=== PATIENT | male | born 1950 | race Caucasian/White ===

== ENCOUNTER 2019-05-02 21:23 | Inpatient (IN) | payer MEDICARE ==
[2019-05-02 22:34] VITALS: BMI 26.6
[2019-05-03] MEDS ORDERED: Bisacodyl 10 MG SUPP PR PRN (00:06)
[2019-05-03] MEDS ORDERED: Cyclobenzaprine 10 MG TAB PO PRN (00:08)
[2019-05-03] MEDS ORDERED: Dexamethasone 4 MG TAB PO SCH (00:15)
[2019-05-03] MEDS: Clindamycin 150 MG CAP PO SCH ×4 (00:37→19:03)
[2019-05-03] MEDS ORDERED: Clindamycin 150 MG CAP PO SCH (00:45)
[2019-05-03 05:52] LABS: #Basophils 0.2 thou/uL (0.0-0.2); #Lymphocytes 0.7 thou/uL (1.20-3.40); #Monocytes 1.9 thou/uL (0.11-0.59); #Neutrophils 13.5 thou/uL (1.40-6.50); %Basophils 1.4 % (0.0-1.0); %Eosinophils 0.1 % (0.0-10.0); %Lymphocytes 4.2 % (21.0-51.0); %Monocytes 11.8 % (0.0-10.0); %Neutrophils 82.5 % (42.0-75.0); Anisocytosis SLIGHT = 6-15 cells (100X) (0-5/hpf); Hemoglobin 8.6 g/dL (14.0-18.0); Hypochromia SLIGHT = 6-15 cells (100X) (0-5/hpf); MDiff Complete? YES; Mean Corpuscular HGB CONC 30.1 g/dL (32.0-36.0); Mean Corpuscular Hemoglobin 25.6 pg (27.0-31.0); Mean Platelet Volume 6.7 fL (7.4-10.4); Ovalocytes SLIGHT = 2-5 cells (100X) (0-1/hpf); Platelet Count 378 thou/uL (130-400); Platelet Morphology Comment Appears Adequate; Polychromasia SLIGHT = 2-3 cells (100X) (0-2/hpf); RBC Distribution Width 20.4 % (11.5-14.5); Red Blood Cell (RBC) Count 3.35 mill/uL (4.70-6.10); White Blood Cell (WBC) Count 16.3 thou/uL (4.8-10.8)
[2019-05-03 05:59] LABS: ALT (SGPT) 21 U/L (8-55); AST (SGOT) 51 U/L (5-34); Albumin 1.9 g/dL (3.4-4.8); Alkaline Phosphatase 315 U/L (40-110); Anion Gap 14 mmol/L (10-20); BUN (Urea Nitrogen) 13 mg/dL (8.4-25.7); Bilirubin, Total 0.6 mg/dL (0.2-1.2); Calc. Creatinine Clearance 168 mL/min (70-130); Calcium 8.3 mg/dL (7.8-10.44); Carbon Dioxide 34 mmol/L (23-31); Chloride 94 mmol/L (98-107); Estimated GFR-MDRD Greater than 90; Globulin 3.2 g/dL (2.4-3.5); Glucose 110 mg/dL (80-115); Protein, Total 5.1 g/dL (5.8-8.1); Sodium 138 mmol/L (136-145)
[2019-05-03] MEDS ORDERED: Sodium Chloride 1 GM TAB PO SCH (09:00)
[2019-05-03] MEDS: Morphine ER 15 MG TAB PO SCH ×2 (09:14→20:30)
[2019-05-03] MEDS: Metoprolol Tartrate 25 MG TAB PO SCH ×2 (09:15→20:31)
[2019-05-03] MEDS: Digoxin 0.125 MG TAB PO SCH (09:15)
[2019-05-03] MEDS: Multivitamin W/ Minerals 1 TAB PO SCH (09:15)
[2019-05-03] MEDS: Carvedilol 3.125 MG TAB PO SCH ×2 (09:15→20:31)
[2019-05-03] MEDS: Tamsulosin HCl 0.4 MG CAP PO SCH (09:15)
[2019-05-03] MEDS: Dutasteride 0.5 MG CAP PO SCH (09:16)
[2019-05-03] MEDS: Fish Oil 1,000 MG CAP PO SCH (09:16)
[2019-05-03] MEDS: Sodium Chloride 1 GM TAB PO SCH ×2 (09:16→20:30)
[2019-05-03] MEDS: Polyethylene Glycol 3350 17 GM Packet PO PRN (11:58)
[2019-05-03] MEDS: Atorvastatin Calcium 10 MG TAB PO SCH (20:31)
[2019-05-04] MEDS: Clindamycin 150 MG CAP PO SCH ×5 (01:00→23:08)
[2019-05-04 05:51] LABS: Anion Gap 14 mmol/L (10-20); BUN (Urea Nitrogen) 12 mg/dL (8.4-25.7); Calc. Creatinine Clearance 175 mL/min (70-130); Carbon Dioxide 33 mmol/L (23-31); Chloride 93 mmol/L (98-107); Estimated GFR-MDRD Greater than 90; Glucose 99 mg/dL (80-115); Potassium 3.7 mmol/L (3.5-5.1); Sodium 136 mmol/L (136-145)
[2019-05-04 06:01] LABS: #Basophils 0.2 thou/uL (0.0-0.2); #Lymphocytes 0.8 thou/uL (1.20-3.40); #Monocytes 2.3 thou/uL (0.11-0.59); #Neutrophils 14.6 thou/uL (1.40-6.50); %Basophils 1.1 % (0.0-1.0); %Eosinophils 0.1 % (0.0-10.0); %Lymphocytes 4.4 % (21.0-51.0); %Monocytes 12.9 % (0.0-10.0); %Neutrophils 81.4 % (42.0-75.0); Anisocytosis SLIGHT = 6-15 cells (100X) (0-5/hpf); Hemoglobin 8.3 g/dL (14.0-18.0); Hypochromia MODERATE=16-30 cells (100X) (0-5/hpf); MDiff Complete? YES; Mean Corpuscular HGB CONC 30.4 g/dL (32.0-36.0); Mean Corpuscular Hemoglobin 25.7 pg (27.0-31.0); Mean Corpuscular Volume 84.6 fL (78.0-98.0); Microcytosis SLIGHT = 6-15 cells (100X) (0-5/hpf); Ovalocytes SLIGHT = 2-5 cells (100X) (0-1/hpf); Platelet Count 370 thou/uL (130-400); Platelet Morphology Comment Appears Adequate; Poikilocytosis SLIGHT = 6-15 cells (100X) (0-5/hpf); Red Blood Cell (RBC) Count 3.22 mill/uL (4.70-6.10); White Blood Cell (WBC) Count 17.9 thou/uL (4.8-10.8)
[2019-05-04] MEDS: Morphine ER 15 MG TAB PO SCH ×2 (08:53→20:10)
[2019-05-04] MEDS: Digoxin 0.125 MG TAB PO SCH (08:55)
[2019-05-04] MEDS: Metoprolol Tartrate 25 MG TAB PO SCH ×2 (08:55→20:10)
[2019-05-04] MEDS: Carvedilol 3.125 MG TAB PO SCH ×2 (08:55→20:10)
[2019-05-04] MEDS: Fish Oil 1,000 MG CAP PO SCH (08:56)
[2019-05-04] MEDS: Dutasteride 0.5 MG CAP PO SCH (08:56)
[2019-05-04] MEDS: Tamsulosin HCl 0.4 MG CAP PO SCH (08:56)
[2019-05-04] MEDS: Sodium Chloride 1 GM TAB PO SCH ×2 (08:57→20:11)
[2019-05-04] MEDS: Multivitamin W/ Minerals 1 TAB PO SCH (08:57)
[2019-05-04] MEDS: Polyethylene Glycol 3350 17 GM Packet PO PRN (08:57)
[2019-05-04] MEDS: Simethicone Chewable 80 MG TAB PO PRN (09:53)
[2019-05-04] MEDS: HYDROcodone/Acetaminophen 10/325 mg Tablet PO PRN (17:40)
[2019-05-04] MEDS: Atorvastatin Calcium 10 MG TAB PO SCH (20:11)
[2019-05-05] MEDS: Simethicone Chewable 80 MG TAB PO PRN (00:03)
[2019-05-05] MEDS: Morphine ER 15 MG TAB PO SCH ×3 (05:00→20:16)
[2019-05-05] MEDS: Clindamycin 150 MG CAP PO SCH ×3 (05:01→17:34)
--- NOTE | 2019-05-05 07:03 | PRG ---
DATE OF SERVICE: 05/04/[address] Flaquita Bolden. SUBJECTIVE: The patient is an unfortunate 68-year-old white male with metastatic cancer of the lung to the liver, bones, and gluteal muscles, who is having significant pain, requiring MS Contin every 8 hours rather than the every 12 hours that was mistakenly ordered. He has been seen by Oncology at [facility] and offered hospice, but patient has elected to attempt therapy to see, if he will get stronger before this. However, he has been unable to do therapy because of his pain and is wishing now to have consult with [facility]. He has had other problems of atrial fibrillation with rapid ventricular response, which has not recurred, but is having significant abdominal pain from probable hepatic metastasis and has been too weak to get out of bed to even consider going home with outpatient hospice OBJECTIVE: GENERAL: At this time shows the patient to be alert, oriented, and lucid, but in some distress from abdominal pain. VITAL SIGNS: Show him to have temperature 97.4, pulse 89, respirations 20, O2 sats 94% on 2 L, blood pressure 104/63. LUNGS: Show decreased breath sounds, both bases. No wheezes or rhonchi. CARDIAC EXAMINATION: Shows irregular rhythm. ABDOMEN: Soft, but with tenderness to palpation in the right upper quadrant. SKIN/EXTREMITIES: Showed no edema LABORATORY DATA: Shows white count 17,900, hematocrit 27, hemoglobin 8.3. Sodium 136, potassium 3.7, chloride 93, bicarb 33, BUN 12, creatinine 0.48, glucose 99. ASSESSMENT: Metastatic lung cancer with significant pain, requiring MS Contin 15 mg every 8 hours instead of every 12, and with increasing weakness with inability to maintain ADLs. The patient is lucid and coherent, and is in room and they both are electing now to consult [facility]. PLAN: 1. Discussed consult with Pricila at [facility] and will come see the patient tomorrow. 2. Increase MS Contin to 15 q.8. 3. Discussed with the patient and family and they understand, as they have had conversations with Oncology previously about hospice, and the patient is ready and does not want any further physical therapy. Job ID: [id number]
[2019-05-05] MEDS: Multivitamin W/ Minerals 1 TAB PO SCH (09:57)
[2019-05-05] MEDS: Dutasteride 0.5 MG CAP PO SCH (09:57)
[2019-05-05] MEDS: Sodium Chloride 1 GM TAB PO SCH ×2 (09:57→20:20)
[2019-05-05] MEDS: Tamsulosin HCl 0.4 MG CAP PO SCH (09:57)
[2019-05-05] MEDS: Fish Oil 1,000 MG CAP PO SCH (09:58)
[2019-05-05] MEDS: Digoxin 0.125 MG TAB PO SCH (09:58)
[2019-05-05] MEDS: Carvedilol 3.125 MG TAB PO SCH ×2 (09:59→20:19)
[2019-05-05] MEDS: Metoprolol Tartrate 25 MG TAB PO SCH ×2 (09:59→20:20)
[2019-05-05] MEDS: Polyethylene Glycol 3350 17 GM Packet PO PRN (10:17)
[2019-05-05] MEDS: HYDROcodone/Acetaminophen 10/325 mg Tablet PO PRN ×3 (10:18→22:00)
[2019-05-05] MEDS: Atorvastatin Calcium 10 MG TAB PO SCH (20:19)
--- NOTE | 2019-05-05 21:20 | PRG ---
DATE OF SERVICE: 05/05/2019 SUBJECTIVE: The patient has been seen by [facility] and is not being deemed to be a candidate for inpatient hospice. The patient states that he cannot hardly do any further therapy because of weakness and shortness of breath. He has also developed a urinary retention, requiring intermittent caths twice today. He has stated he does not wish to at home, but states she cannot put him in the skilled nursing. He is having significant shortness of breath on minimal exertion and has significant pain on moving his legs at all. OBJECTIVE: VITAL SIGNS: Shows his blood pressure is 119/68, temperature 97.9, pulse 97, respirations 18, O2 saturations 95% on room air. LUNGS: Showed a few diffuse rhonchi. CARDIAC: Showed regular rhythm. ABDOMEN: Soft, but tender. SKIN/EXTREMITIES: Showed 1+ edema. No clubbing or cyanosis. NEUROLOGICAL: Diffuse with generalized weakness. ASSESSMENT: 1. Metastatic lung cancer with significant pain, controlled on MS Contin 15 mg every 8 hours. 2. Increased weakness and inability to maintain ADLs, but wishes to continue PT and OT in order to continue to qualify for skilled, he is not a candidate for inpatient hospice and does not want to go to outpatient hospice if at all possible. PLAN: 1. Discontinue all medications that are not specifically for symptoms. 2. Continue to attempt PT and OT. 3. Do intermittent caths every 6 hours if unable to void and may need Salazar catheter. 4. Discuss discontinuation of all laboratories. 5. Dr. Huber to be back tonight. Job ID: [id number]
[2019-05-06] MEDS: Clindamycin 150 MG CAP PO SCH ×5 (00:08→23:49)
[2019-05-06] MEDS: Morphine ER 15 MG TAB PO SCH ×3 (03:55→19:53)
--- NOTE | 2019-05-06 07:46 | HP ---
Date of service: 05/03/2019 CHIEF COMPLAINT: Recent admission to the hospital with metastatic lung cancer and shortness of breath with possible pneumonitis, here for therapy. BRIEF HISTORY: This is a very pleasant 68-year-old male, who has a history of metastatic cancer of the lung. He was admitted to the hospital with possible syncopal episode. He was diagnosed with acute hypoxemic respiratory failure, possibly due to right-sided pneumonia and pleural effusion and was started on IV antibiotics. He responded gradually. CT was negative for PE. Echocardiogram showed he had a small pericardial effusion. He was significantly deconditioned and was recommended hospice due to him not being a candidate for any further chemotherapy due to his current clinical state and he wanted to try therapy before he made any decision, so he was transferred here. The patient is resting comfortable in bed. He denies any chest pain or shortness of breath. The pain is controlled on current regimen. PAST MEDICAL HISTORY: 1. Atrial fibrillation. 2. Stage IV lung cancer with metastasis to the bones, liver, gluteal muscles. 3. Portal vein thrombosis. 4. Acute hypoxemic respiratory failure. 5. Possible resolving pneumonitis. 6. Hyponatremia, likely due to syndrome of inappropriate antidiuretic hormone secretion. 7. Anemia of chronic disease. 8. Significant deconditioning. PAST SURGICAL HISTORY: 1. MediPort placement. 2. Tonsillectomy. 3. Shoulder surgery. PSYCHOSOCIAL HISTORY: Lives with his spouse. Denies any tobacco abuse. Social alcohol intake. No recreational drug abuse. ALLERGIES: DOCUMENTED PENICILLIN, BUT APPARENTLY IT WAS HIS FATHER'S AND HE DOES NOT REMEMBER HAVING ANY ISSUES. MEDICATIONS: He has been transferred here on the following medications; 1. [place] 10/325 one tablet q.4 p.r.n. pain. 2. Lipitor 10 mg at bedtime. 3. Carvedilol 3.125 mg b.i.d. 4. Vitamin D3 of 2000 units daily. 5. Clindamycin 300 mg q.6 hours. 6. Flexeril 10 mg t.i.d. p.r.n. 7. Decadron 4 mg before chemo. 8. Lanoxin 0.25 mg daily. 9. Avodart 0.5 mg daily. 10. Lopressor 12.5 mg b.i.d. 11. MS Contin 45 mg q.8. 12. Protonix 40 mg daily. 13. MiraLAX 17 g in 8 ounces of water daily. 14. Salt tablet 1 g b.i.d. 15. Tamsulosin 0.4 mg daily. REVIEW OF SYSTEMS: CARDIOVASCULAR: Denies any chest pain, still has significant shortness of breath. Denies any expectoration, hemoptysis. Denies any PND or orthopnea. Denies any palpitations. RESPIRATORY: Occasional cough. Denies any hemoptysis. GASTROINTESTINAL: Bloating present. Denies any hematemesis, melena, or hematochezia. GENITOURINARY: Denies any frequency, urgency, dysuria, or hematuria. CENTRAL NERVOUS SYSTEM: Generalized weakness. No fainting spells. No seizure activity. HEENT: Denies any difficulty or changes with his vision, speech, hearing, or swallowing. SKIN: Denies any rash. PHYSICAL EXAMINATION: GENERAL: Pleasant 68-year-old male, resting comfortably in bed and denies any concerns. His spouse is in the room. VITAL SIGNS: He is afebrile. Heart rate is 102, respirations 18, oxygen saturation 96% on 2 L, and blood pressure 107/65. HEENT: Normocephalic and atraumatic. Pupils equally reactive to light and accommodation. No JVD, thyromegaly, cervical lymphadenopathy, throat exudates, or carotid bruits. CARDIOVASCULAR: S1, S2 plus. Rate and rhythm regular. RESPIRATORY: Normal vesicular breath sounds with decreased air entry in the right base. Occasional rhonchi. ABDOMEN: Firm. Minimal tenderness, generalized. Bowel sounds heard in all quadrants. No rebound or rigidity. EXTREMITIES: Without cyanosis or clubbing. Trace edema. CENTRAL NERVOUS SYSTEM: Awake and responsive. Generalized weakness, otherwise nonfocal. LABORATORY DATA: Laboratory values done on admission shows a white count of 16.3 with H and H of 8.6 and 28.5. Chemistry shows a sodium of 138, potassium 4.0, BUN and creatinine of 13 and 0.5. IMPRESSION: 1. Resolved hyponatremia. 2. Leukocytosis, likely due to steroids. 3. Anemia of chronic disease. 4. Metastatic lung cancer. 5. Atrial fibrillation. 6. Acute hypoxemic respiratory failure. 7. Significant deconditioning. 8. Anemia of chronic disease. 9. Portal vein thrombosis. 10. History of dyslipidemia. PLAN: 1. Continue current medications. 2. Nutritional support. 3. Pain management. 4. DVT prophylaxis with PlexiPulses. 5. Decubitus precaution. 6. Stress ulcer prophylaxis with pantoprazole. 7. PT and OT eval and treat. 8. DNR status confirmed with the patient and spouse. 9. Routine laboratory values. 10. Poor ad terminal makeup operator prognosis. 11. Dr. Khan is on-call this weekend. Job ID: [id number] MTDD
[2019-05-06] MEDS: Dutasteride 0.5 MG CAP PO SCH (09:43)
[2019-05-06] MEDS: Sodium Chloride 1 GM TAB PO SCH ×2 (09:43→19:54)
[2019-05-06] MEDS: Metoprolol Tartrate 25 MG TAB PO SCH ×2 (09:44→19:55)
[2019-05-06] MEDS: Digoxin 0.125 MG TAB PO SCH (09:45)
[2019-05-06] MEDS: Carvedilol 3.125 MG TAB PO SCH ×2 (09:45→19:54)
[2019-05-06] MEDS: Tamsulosin HCl 0.4 MG CAP PO SCH (09:45)
[2019-05-06] MEDS: Multivitamin W/ Minerals 1 TAB PO SCH (09:46)
[2019-05-06] MEDS: HYDROcodone/Acetaminophen 10/325 mg Tablet PO PRN (09:54)
--- NOTE | 2019-05-06 19:23 | PRG ---
DATE OF SERVICE: 05/06/2019 SUBJECTIVE: Mr. Greene is resting in bed. He apparently is having significant residual requiring in and out catheterization and he is getting tired of it, so I asked nursing to place a Salazar catheter. He has complaints of significant abdominal pain feeling as well as poor p.o. intake. He apparently drank just one Ensure. His spouse is in the room. He unfortunately did not qualify for inpatient hospice. He really does not want to go home to , so he is trying to still participate with therapy and can make some decisions. He also wants to think about the Remeron as an appetite stimulant. OBJECTIVE: VITAL SIGNS: He is afebrile, heart rate 92, respirations 18, oxygen saturation 95% on room air, blood pressure 105/65. CARDIOVASCULAR: S1 and S2 plus. RESPIRATORY: Normal vesicular breath sounds. ABDOMEN: Soft, nontender. Bowel sounds heard in all quadrants. EXTREMITIES: Without cyanosis or clubbing. Significant weakness. IMPRESSION: 1. Metastatic lung cancer. 2. Urinary retention requiring Salazar catheter placement. 3. Atrial fibrillation. 4. Acute hypoxemic respiratory failure. 5. Portal vein thrombosis. 6. Resolved hyponatremia. 7. Anemia of chronic disease. 8. Anorexia, likely due to cancer. PLAN: 1. Continue current medications. 2. Nutritional support. 3. Salazar catheter care. 4. Physical therapy. 5. Pain control. 6. Poor long-term prognosis. 7. The patient will think about Remeron. 8. Discussed with the patient and nursing. Job ID: [id number]
[2019-05-07] MEDS: Morphine ER 15 MG TAB PO SCH ×3 (04:00→20:20)
[2019-05-07] MEDS: Clindamycin 150 MG CAP PO SCH ×4 (05:41→23:36)
[2019-05-07] MEDS: Digoxin 0.125 MG TAB PO SCH (08:42)
[2019-05-07] MEDS: Dutasteride 0.5 MG CAP PO SCH (08:42)
[2019-05-07] MEDS: Sodium Chloride 1 GM TAB PO SCH ×2 (08:43→20:21)
[2019-05-07] MEDS: Multivitamin W/ Minerals 1 TAB PO SCH (08:43)
[2019-05-07] MEDS: Tamsulosin HCl 0.4 MG CAP PO SCH (08:44)
[2019-05-07] MEDS: Carvedilol 3.125 MG TAB PO SCH ×2 (08:46→20:21)
[2019-05-07] MEDS: Metoprolol Tartrate 25 MG TAB PO SCH (08:56)
[2019-05-07] MEDS: HYDROcodone/Acetaminophen 10/325 mg Tablet PO PRN (12:54)
--- NOTE | 2019-05-07 13:33 | PRG ---
DATE OF SERVICE: 05/07/2019 SUBJECTIVE: Mr. Greene is resting in bed. He is hardly eating anything. He is drinking Ensure. He states that it hurts even to kind of turn around in the bed. He is aware of the risks for bedsores. His has gone upstairs for the weekly case conference. OBJECTIVE: VITAL SIGNS: He is afebrile. Heart rate 82, respirations 18, oxygen saturation 95% on 2.5 L nasal cannula, blood pressure 102/56. CARDIOVASCULAR SYSTEM: S1 and S2 plus. RESPIRATORY SYSTEM: Normal vesicular breath sounds. ABDOMEN: Soft and nontender. Bowel sounds heard in all quadrants. EXTREMITIES: Without cyanosis or clubbing. CENTRAL NERVOUS SYSTEM: Generalized weakness. IMPRESSION: 1. Metastatic lung cancer. 2. Atrial fibrillation. 3. Resolved hyponatremia. 4. Anemia of chronic disease. 5. Portal vein thrombosis. 6. Acute hypoxemic respiratory failure. 7. Urinary retention requiring Salazar catheter placement. PLAN: 1. Continue current medications. 2. Nutritional support. 3. DVT prophylaxis with PlexiPulses. 4. Decubitus precautions. 5. Stress ulcer prophylaxis. 6. Physical therapy. 7. Pain management. 8. Discussed with the patient in detail. Encourage p.o. intake. Job ID: [id number]
[2019-05-07 17:25] LABS: Anion Gap 16 mmol/L (10-20); BUN (Urea Nitrogen) 29 mg/dL (8.4-25.7); Calc. Creatinine Clearance 129 mL/min (70-130); Calcium 7.7 mg/dL (7.8-10.44); Carbon Dioxide 29 mmol/L (23-31); Chloride 88 mmol/L (98-107); Estimated GFR-MDRD Greater than 90; Glucose 88 mg/dL (80-115); Potassium 5.7 mmol/L (3.5-5.1); Sodium 127 mmol/L (136-145)
[2019-05-08] MEDS: Morphine ER 15 MG TAB PO SCH ×2 (05:07→11:48)
[2019-05-08] MEDS: Clindamycin 150 MG CAP PO SCH ×3 (05:07→17:33)
[2019-05-08] MEDS: Multivitamin W/ Minerals 1 TAB PO SCH (08:46)
[2019-05-08] MEDS: Sodium Chloride 1 GM TAB PO SCH ×2 (08:46→21:09)
[2019-05-08] MEDS: Tamsulosin HCl 0.4 MG CAP PO SCH (08:46)
[2019-05-08] MEDS: Dutasteride 0.5 MG CAP PO SCH (08:46)
[2019-05-08] MEDS: Digoxin 0.125 MG TAB PO SCH (08:46)
[2019-05-08] MEDS: Carvedilol 3.125 MG TAB PO SCH ×2 (08:47→21:09)
[2019-05-08] MEDS: HYDROcodone/Acetaminophen 10/325 mg Tablet PO PRN (09:59)
--- NOTE | 2019-05-08 13:15 | PRG ---
DATE OF SERVICE: 05/08/2019 SUBJECTIVE: Mr. Greene is complaining of worsening pain. He is also finding it difficult to swallow the hydrocodone. I advised him that we can try a fentanyl patch and sublingual morphine, he is agreeable. Apparently, they have been talking to the director stage and trying to figure out ways to try to get him qualified for hospice. OBJECTIVE: VITAL SIGNS: He is afebrile, heart rate 73, respirations 18, oxygen saturation 97% on 3 L, blood pressure 111/60. CARDIOVASCULAR: S1 and S2 plus. RESPIRATORY: Normal vesicular breath sounds. ABDOMEN: Soft, nontender. Bowel sounds heard in all quadrants. EXTREMITIES: Without cyanosis or clubbing. IMPRESSION: 1. Metastatic lung cancer. 2. Atrial fibrillation. 3. Poor p.o. intake. 4. Urinary retention requiring Salazar catheter placement. 5. Portal vein thrombosis. 6. Acute hypoxemic respiratory failure. PLAN: 1. Discontinue extended-release morphine and start fentanyl patch 50 mcg based upon conversion. 2. Roxanol 5 mg sublingual q.4 p.r.n. for breakthrough pain and discontinue hydrocodone. 3. Encourage p.o. intake. 4. Physical therapy. 5. trying to sort out hospice. Discussed with the patient and in detail. All questions answered. Poor long-term prognosis. 6. Salazar catheter care. Job ID: [id number]
[2019-05-08] MEDS: fentaNYL 50 mcg/hour Patch TD SCH (13:32)
[2019-05-08] MEDS: Morphine 10 MG/0.5 ML ORAL SYRINGE SL PRN (21:26)
[2019-05-09] MEDS: Clindamycin 150 MG CAP PO SCH
[2019-05-09] MEDS: Morphine 10 MG/0.5 ML ORAL SYRINGE SL PRN (06:03)
[2019-05-09] MEDS: Simethicone Chewable 80 MG TAB PO PRN (06:04)
[2019-05-09] MEDS: Digoxin 0.125 MG TAB PO SCH (08:42)
[2019-05-09] MEDS: Dutasteride 0.5 MG CAP PO SCH (08:42)
[2019-05-09] MEDS: Carvedilol 3.125 MG TAB PO SCH ×2 (08:42→21:20)
[2019-05-09] MEDS: Tamsulosin HCl 0.4 MG CAP PO SCH (08:42)
[2019-05-09] MEDS: Sodium Chloride 1 GM TAB PO SCH ×2 (08:42→21:20)
[2019-05-09] MEDS: Multivitamin W/ Minerals 1 TAB PO SCH (08:43)
[2019-05-09] MEDS: Morphine 10 MG/0.5 ML ORAL SYRINGE SL SCH ×3 (13:00→21:18)
--- NOTE | 2019-05-09 13:08 | PRG ---
DATE OF SERVICE: 05/09/2019 SUBJECTIVE: Mr. Greene is resting in bed. He states that he is in pain. He only took 2 doses of the Roxanol. I am not sure if he forgets to take it or not. His is in the room. Plan is to change his Roxanol to routine instead of p.r.n. and see how he does. Discussed with nursing as well. He is not eating and drinking well, and apparently, DON is trying to get him evaluated again by hospice. If he continues to have issues with swallowing, we may switch him to IV morphine. OBJECTIVE: VITAL SIGNS: He is afebrile. Heart rate 81, respirations 18, oxygen saturation 93% on 3 L, and blood pressure 120/69. CARDIOVASCULAR: S1, S2 plus. RESPIRATORY: Normal vesicular breath sounds. ABDOMEN: Soft, nontender. Bowel sounds heard in all quadrants. EXTREMITIES: Without cyanosis or clubbing. IMPRESSION: 1. Metastatic lung cancer. 2. Atrial fibrillation. 3. Portal vein thrombosis. 4. Cancer cachexia. 5. Pain and decreased p.o. intake. PLAN: 1. Supportive care. 2. Change Roxanol to schedule. 3. Continue fentanyl. 4. May switch him to IV morphine. 5. Poor terminal superintendent prognosis. 6. Await hospice evaluation. Job ID: [id number]
[2019-05-10] MEDS: Morphine 10 MG/0.5 ML ORAL SYRINGE SL SCH ×6 (01:02→21:22)
[2019-05-10] MEDS ORDERED: Morphine 2 MG/ML SYRINGE SLOW IVP PRN (08:23)
--- NOTE | 2019-05-10 08:49 | PRG ---
DATE OF SERVICE: 05/10/2019 SUBJECTIVE: Mr. Greene is awake and states that he did have significant pain about 2 hours ago and the Roxanol helped. He feels like the Roxanol every 4 hours is really not doing the job, and he is also now finding it difficult to swallow even his saliva. I advised him that I will start him on IV morphine q.2. His is in the room, and he apparently does have episodes of confusion. I reviewed his medications. It most likely is related to his narcotics plus his primary problem, which is metastatic lung cancer. I advised her that we will add some trazodone at night to see if that helps him rest. OBJECTIVE: VITAL SIGNS: He is afebrile. Heart rate is 78, respirations 22, oxygen saturation 96% on 3 L, blood pressure 138/78. CARDIOVASCULAR: S1 and S2 plus. RESPIRATORY: Normal vesicular breath sounds. ABDOMEN: Soft and nontender. EXTREMITIES: Without cyanosis or clubbing. CENTRAL NERVOUS SYSTEM: Episodes of confusion and generalized weakness. Otherwise, nonfocal. IMPRESSION: 1. Metastatic lung cancer. 2. Resolved hyponatremia. 3. Benign prostatic hypertrophy. 4. Significant pain. 5. Cancer cachexia. 6. Atrial fibrillation. 7. Portal vein thrombosis. PLAN: 1. Continue current medications. 2. Add IV morphine 2 mg q.2 p.r.n. 3. Can access MediPort. 4. Encourage p.o. intake. 5. Comfort care per the patient and spouse. 6. Discussed with nursing. Job ID: [id number]
[2019-05-10] MEDS: Tamsulosin HCl 0.4 MG CAP PO SCH (10:17)
[2019-05-10] MEDS: Carvedilol 3.125 MG TAB PO SCH ×2 (10:17→20:20)
[2019-05-10] MEDS: Dutasteride 0.5 MG CAP PO SCH (10:17)
[2019-05-10] MEDS: Digoxin 0.125 MG TAB PO SCH (10:17)
[2019-05-10] MEDS: Sodium Chloride 1 GM TAB PO SCH ×2 (10:17→20:20)
[2019-05-10] MEDS: Multivitamin W/ Minerals 1 TAB PO SCH (10:25)
[2019-05-10] MEDS ORDERED: Morphine 2 MG/ML SYRINGE ONE (20:11)
[2019-05-11] MEDS: Morphine 10 MG/0.5 ML ORAL SYRINGE SL SCH ×6 (01:26→21:23)
[2019-05-11] MEDS: Multivitamin W/ Minerals 1 TAB PO SCH (08:22)
[2019-05-11] MEDS: Dutasteride 0.5 MG CAP PO SCH (08:22)
[2019-05-11] MEDS: Tamsulosin HCl 0.4 MG CAP PO SCH (08:23)
[2019-05-11] MEDS: Sodium Chloride 1 GM TAB PO SCH ×2 (08:23→21:24)
[2019-05-11] MEDS: Digoxin 0.125 MG TAB PO SCH (08:23)
[2019-05-11] MEDS: Carvedilol 3.125 MG TAB PO SCH ×2 (08:24→21:23)
[2019-05-11] MEDS ORDERED: Morphine 2 MG/ML SYRINGE SLOW IVP PRN (15:29)
[2019-05-11] MEDS ORDERED: Lorazepam 2 MG/ML VIAL SLOW IVP PRN (15:29)
--- NOTE | 2019-05-11 15:57 | PRG ---
DATE OF SERVICE: 05/11/2019 SUBJECTIVE: Mr. Greene is sleeping. is in the room. states that he is having episodes of agitation. Pain seems to be controlled. She also stated that her daughter needs FMLA paper signed, and I advised her that, that can really needs to be done by her primary care physician since I have to retain all paperwork I sign, and I do not have any account on her in my office. OBJECTIVE: VITAL SIGNS: He is afebrile. Heart rate 74, respirations 20, oxygen saturation 94% on 4 L, blood pressure 139/74. CARDIOVASCULAR: S1 and S2 plus. RESPIRATORY: Normal vesicular breath sounds. ABDOMEN: Soft and nontender. Bowel sounds heard in all quadrants. EXTREMITIES: Without cyanosis or clubbing. IMPRESSION: 1. Metastatic lung cancer. 2. Atrial fibrillation. 3. Portal vein thrombosis. 4. Acute hypoxemic respiratory failure. 5. Significant deconditioning. 6. Poor p.o. intake. PLAN: 1. Continue current medications, but add IV Ativan. 2. Comfort care only. 3. Encourage p.o. intake. 4. Discussed with and nursing. Job ID: [id number]
[2019-05-11] MEDS ORDERED: Morphine 2 MG/ML SYRINGE ONE ×2 (16:31)
[2019-05-11] MEDS: fentaNYL 50 mcg/hour Patch TD SCH (16:50)
[2019-05-12] MEDS: Morphine 10 MG/0.5 ML ORAL SYRINGE SL SCH ×6 (00:23→21:38)
[2019-05-12] MEDS: Digoxin 0.125 MG TAB PO SCH (10:05)
[2019-05-12] MEDS: Tamsulosin HCl 0.4 MG CAP PO SCH (10:06)
[2019-05-12] MEDS: Sodium Chloride 1 GM TAB PO SCH ×2 (10:06→21:40)
[2019-05-12] MEDS: Dutasteride 0.5 MG CAP PO SCH (10:07)
[2019-05-12] MEDS: Carvedilol 3.125 MG TAB PO SCH ×2 (10:07→21:40)
[2019-05-12] MEDS: Multivitamin W/ Minerals 1 TAB PO SCH (10:08)
--- NOTE | 2019-05-12 15:27 | PRG ---
DATE OF SERVICE: 05/12/2019 SUBJECTIVE: Mr. Greene is resting comfortably. Whole family is in the room. states that he has been much less agitated. He is hardly eating or drinking anything. They wanted to know if he needs to continue on all of his medications, and I advised them that at this point, it really is not benefiting him any in the short term, and we can stop it, but I also advised them that there is the possibility that his blood pressure can go up and his heart rate can go up, and so, they want to think about it and let the nurses now. OBJECTIVE: VITAL SIGNS: He is afebrile, heart rate 79, respirations 22, oxygen saturation 96% on 4 L, blood pressure 100/51. CARDIOVASCULAR: S1 and S2 plus. RESPIRATORY: Normal vesicular breath sounds. ABDOMEN: Soft, nontender. Bowel sounds heard in all quadrants. EXTREMITIES: Without cyanosis or clubbing. CENTRAL NERVOUS SYSTEM: Dozing, but arousable, somnolent. IMPRESSION: 1. Metastatic colon cancer. 2. Atrial fibrillation. 3. Portal vein thrombosis. 4. Hyponatremia, which has resolved. 5. Acute hypoxemic respiratory failure. 6. Cancer cachexia and decreased p.o. intake. PLAN: 1. Continue supportive care with morphine and Ativan. 2. Family to decide on which oral medications to stop. 3. Comfort care only. 4. All questions answered. 5. 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 Job ID: [id number]
[2019-05-13] MEDS: Morphine 10 MG/0.5 ML ORAL SYRINGE SL SCH ×6 (01:08→23:10)
[2019-05-13 09:19] VITALS: TEMP 96.8
[2019-05-13] MEDS: Digoxin 0.125 MG TAB PO SCH (09:19)
[2019-05-13] MEDS: Dutasteride 0.5 MG CAP PO SCH (09:19)
[2019-05-13] MEDS: Carvedilol 3.125 MG TAB PO SCH ×2 (09:19→23:10)
[2019-05-13] MEDS: Multivitamin W/ Minerals 1 TAB PO SCH (09:19)
[2019-05-13] MEDS: Sodium Chloride 1 GM TAB PO SCH ×2 (09:20→23:11)
[2019-05-13] MEDS: Tamsulosin HCl 0.4 MG CAP PO SCH (09:20)
[2019-05-13] MEDS ORDERED: Morphine 4 MG/ML VIAL SLOW IVP PRN (10:00)
--- NOTE | 2019-05-13 13:39 | PRG ---
DATE OF SERVICE: 05/13/2019 SUBJECTIVE: Mr. Greene is resting comfortably. He barely took couple of sips of water. He is not eating anything. His daughter is in the room. He is comfortable, not in any distress. All questions answered. OBJECTIVE: VITAL SIGNS: He is afebrile. Heart rate 65, respirations 18, oxygen saturation 90% on 4 L, blood pressure 105/56, this is from early this morning. CARDIOVASCULAR: S1 and S2 plus. RESPIRATORY: Normal vesicular breath sounds. ABDOMEN: Soft and nontender. Bowel sounds heard in all quadrants. EXTREMITIES: Without cyanosis or clubbing. IMPRESSION: 1. Metastatic lung cancer. 2. Atrial fibrillation. 3. Portal vein thrombosis. 4. No p.o. intake. 5. Acute hypoxemic respiratory failure. PLAN: 1. Comfort measures with morphine and Ativan. 2. Discussed with family in detail. All questions answered. Job ID: [id number]
[2019-05-13 20:29] VITALS: BP 65/35
--- NOTE | 2019-05-14 13:23 | DIS ---
DATE OF ADMISSION: 05/02/2019 DATE OF DISCHARGE: 05/13/2019 DATE OF : 05/13/2019 PRINCIPAL DIAGNOSES: 1. Metastatic lung cancer. 2. Acute hypoxemic respiratory failure. 3. Atrial fibrillation. 4. Portal vein thrombosis. 5. Resolved hyponatremia. 6. Cancer cachexia with decreased p.o. intake. COMPLICATIONS: None. ADVERSE REACTIONS: None. PROCEDURES: None. CONSULTATIONS: Physical Therapy. HOSPITAL COURSE: The patient was transferred here with a diagnosis of metastatic lung cancer for possible therapy and strengthening before he goes home. Unfortunately, he was not able to tolerate any therapy at all and from the second day, it was pretty much decided that he was going to be more of a palliative care patient. He was started on morphine and Ativan, and we eventually had to switch him to IV morphine and IV Ativan due to difficulty swallowing and somnolence. He gradually declined and peacefully on May 13 at about 9:00 at night. Family denied autopsy. His body was released to the home, and for full details, please see dictation. Job ID: [id number]
--- NOTE | 2019-05-15 09:54 | PQF ---
Rip Greene POLLACHI MD [id number] CLINICAL DOCUMENTATION CLARIFICATION FORM: POST DISCHARGE Addendum to original discharge summary date: ____ Late entry note date: __ Date:05/15/2019 ATTN:FLAQUITA JENSEN MD Please exercise your independent, professional judgment in responding to the clarification form. Clinical indicators are provided on the bottom of this form for your review Please check appropriate box(s): [ X ] Protein Calorie Malnutrition: [ ] Mild [ X ] Moderate [ ] Severe [ ] Other Malnutrition (please specify) __ [ ] Underweight without malnutrition [ ] Cachexia [ ] Other diagnosis [ ] Unable to determine In addition, please specify: Present on Admission (POA): [ X ] Yes [ ] No [ ] Unable to determine CLINICAL INDICATORS - SIGNS / SYMPTOMS / LABS BMI-26.6-Documented in FNS assessment Decreased appetite, Fatigue-Documented in FNS assessment Cancer cachexia with decreased p.o intake-Documented in discharge summary on by Flaquita Ramos MD Metastatic lung cancer-Documented in discharge summary on 05/13 by Flaquita Ramos MD Albumin-1.9-Documented in Laboratory Calcium-7.7-Documented in Laboratory RISK FACTORS Metastatic lung cancer-Documented in discharge summary on 05/13 by Flaquita Ramos MD TREATMENT: General/healthful diet, Suppl comm beverage-Documented in FNC assessment Continue regular diet to encourage PO intake Encouraged to notify FS if pt has food requests or bring items from home-Documented in FNC assessment Continue Ensure Enlive TID-Documented in FNC assessment Consider appetite stimulant if intake dose not start to improve-Documented in FNC assessment Moderate Malnutrition (in acute illness) Energy Intake: <75% of estimated energy requirement for > 7 days Weight Loss: 1-2%/1 week; 5%/ 1 month; 7.5%/3 months Other: mild body fat loss; mild muscle mass loss; mild fluid accumulation; Severe Malnutrition (in acute illness) Energy Intake: < 50% of estimated energy requirement for > 5 days Weight Loss: >1-2%/1 week; >5%/1 month; >7.5%/3 months Other: moderate body fat loss; moderate muscle mass loss; moderate- severe fluid accumulation; measurably reduced beer coil cleaner strength Moderate Malnutrition (in chronic illness) Energy Intake: <75% of estimated energy requirement for >1 month Weight Loss: 5%/1 month; 7.5%/3 months; 10%/6 months; 20%/1 year Other: mild body fat loss; mild muscle mass loss; mild fluid accumulation Severe Malnutrition (in chronic illness) Energy Intake: <75% of estimated energy requirement for >1 month Weight Loss: >5%/1 month; >7.5%/3 months; >10%/6 months; >20%/1 year Other: severe body fat loss; severe muscle mass loss; severe fluid accumulation ; measurably reduced beer coil cleaner strength [employer] (This form is maintained as a part of the permanent medical record) 2014 [email or web address]. All Rights Reserved [email or web address] [phone] [email or web address]
== END 2019-05-13 22:03 | disposition expired | DRG 180 ==
LOC: NAV ACUTE 21:23
PROVIDERS: ADMIT Internal Medicine; ATTEND Internal Medicine
DX: C34.90 Malignant neoplasm of unspecified part of unspecified bronchus or lung (principal); J96.01 Acute respiratory failure with hypoxia; I81 Portal vein thrombosis; K76.6 Portal hypertension; C78.7 Secondary malignant neoplasm of liver and intrahepatic bile duct; C79.51 Secondary malignant neoplasm of bone; C79.89 Secondary malignant neoplasm of other specified sites; E87.1 Hypo-osmolality and hyponatremia; E44.0 Moderate protein-calorie malnutrition; Z51.5 Encounter for palliative care; Z72.3 Lack of physical exercise; E78.5 Hyperlipidemia, unspecified; D63.8 Anemia in other chronic diseases classified elsewhere; I48.91 Unspecified atrial fibrillation; Z68.26 Body mass index [BMI] 26.0-26.9, adult; Z98.890 Other specified postprocedural states; Z88.0 Allergy status to penicillin; Z66 Do not resuscitate; D72.829 Elevated white blood cell count, unspecified; T38.0X5A Adverse effect of glucocorticoids and synthetic analogues, initial encounter; R53.1 Weakness; N40.1 Benign prostatic hyperplasia with lower urinary tract symptoms; R33.8 Other retention of urine; R63.0 Anorexia; R33.9 Retention of urine, unspecified
CPT/HCPCS: 36415; 80048; 80053; 85025; J2270